=== PATIENT | female | born 2000 | race African-American/Black ===

== ENCOUNTER 2021-02-28 10:16 | Day surgery (SDC) | payer OTHER ==
[2021-02-28 11:20] VITALS: BMI 23.0
[2021-02-28] MEDS ORDERED: Acetaminophen 500 MG TAB PO PRN (12:12)
[2021-02-28] MEDS ORDERED: hydrALAZINE 20 MG/ML VIAL SLOW IVP PRN (12:12)
[2021-02-28 13:02] LABS: Bilirubin Neg (Negative); Blood, Urine Negative (Negative); Clarity Clear (Clear); Glucose, Urine (Dipstick) Normal (Negative); Ketone, Urine Negative (Negative); Leukocyte Negative (Negative); Nitrite Negative (Negative); Protein, Urine (Dipstick) Negative (Neg-Trace); Urobilinogen Normal mg/dL (Less than 2)
[2021-02-28 13:03] LABS: Urine Culture Reflex No No
[2021-02-28 13:06] LABS: Bacteria/HPF None Seen HPF (None Seen); RBC/HPF 0-3 HPF (0-3); Squamous Epithelial 0-3 HPF (0-3); WBC/HPF 0-3 HPF (0-3)
== END 2021-02-28 14:00 | disposition home or self-care (01) ==
LOC: CSHLD/OP 10:16
PROVIDERS: ATTEND Student in an Organized Health Care Education/Training Program
DX: O99.891 Other specified diseases and conditions complicating pregnancy (principal); M54.50 Low back pain, unspecified; R10.31 Right lower quadrant pain; R10.32 Left lower quadrant pain; O99.612 Diseases of the digestive system complicating pregnancy, second trimester; K59.00 Constipation, unspecified; Z3A.24 24 weeks gestation of pregnancy
CPT/HCPCS: 81001; 87480; 87510; 87660; 99284

== ENCOUNTER 2021-04-26 16:52 | Day surgery (SDC) | payer OTHER ==
[2021-04-26] MEDS ORDERED: hydrALAZINE 20 MG/ML VIAL SLOW IVP PRN (18:02)
[2021-04-26 18:21] LABS: Bilirubin Neg (Negative); Blood, Urine Negative (Negative); Clarity Clear (Clear); Glucose, Urine (Dipstick) Normal (Negative); Ketone, Urine Negative (Negative); Leukocyte 25 (Negative); Nitrite Negative (Negative); Protein, Urine (Dipstick) Negative (Neg-Trace); Urobilinogen Normal mg/dL (Less than 2); pH, Urine 6.5 (5.0-9.0)
[2021-04-26 18:28] LABS: Bacteria/HPF 1+ HPF (None Seen); RBC/HPF 0-3 HPF (0-3); Squamous Epithelial 0-3 HPF (0-3); WBC/HPF 0-3 HPF (0-3)
== END 2021-04-26 19:15 | disposition home or self-care (01) ==
LOC: CSHLD/OP 16:52
PROVIDERS: ATTEND Advanced Practice Midwife
DX: O99.891 Other specified diseases and conditions complicating pregnancy (principal); R10.2 Pelvic and perineal pain; R82.71 Bacteriuria; R39.15 Urgency of urination; O99.613 Diseases of the digestive system complicating pregnancy, third trimester; K59.00 Constipation, unspecified; Z3A.32 32 weeks gestation of pregnancy
CPT/HCPCS: 76815; 81001